=== PATIENT | male | born 1965 | race Caucasian/White ===

== ENCOUNTER 2018-04-25 17:07 | Emergency (ER) | payer MEDICAID, SELFPAY ==
[2018-04-25 17:09] VITALS: BP 151/91; PULSE 103; RESP 18; TEMP 37.2; O2SAT 98; BMI 35.9
--- NOTE | 2018-04-25 17:28 | RAD_ITS ---
STUDY: X-RAY - LEFT FOOT CLINICAL: Male, 52 years old. Swelling. Redness TECHNIQUE: 3 view(s) of the foot. COMPARISON: None. FINDINGS: Markedly abnormal appearance of the midfoot with fractures/dislocations of the second third and fourth tarsal metatarsal joints, fragmentation, sclerosis and debris. Findings may represent chronic traumatic injury, or more likely developing Charcot joint. There is loss of normal plantar arch. There is dorsal soft tissue swelling. There is a moderate spur. Degenerative changes of the first metatarsophalangeal joint. RAD/Foot min 3 Views IMPRESSION: Probable developing Charcot joint of the mid foot. Traumatic injury and/or osteomyelitis is not excluded. Electronically Signed: Clyde Aragon MD at 18:23 EDT , Service support ,
--- NOTE | 2018-04-25 17:54 | ED.VISSUMM ---
- ER Visit Summary Date of Service: 04/25/18 Chief Complaint: [Left foot and ankle swelling] History of Present Illness: The patient is a 52 M [presents to the emergency department with left foot and ankle swelling that started a few days ago. Patient denies any significant trauma. Patient denies chills or sweats. Patient denies any chest pain or shortness of breath. Patient denies recent travel or surgery. Patient states that he was just concerned if he may have possibly done anything not injure his foot pain that he has diabetic neuropathy and does not have much sensation in his feet.] Physical Examination: [HEENT-PERRLA, EOMI. Cranial nerves II through XII grossly intact. TMs clear. Mucous membranes moist. No adenopathy. Cardiovascular-regular rate and rhythm without murmur or ectopy Lungs-clear to auscultation, chest wall stable without crepitus or subcu emphysema Abdomen-normoactive bowel sounds, soft, nontender, no rebound or rigidity, no peritoneal signs. Extremities-intact ?4, normal range of motion, normal pulses, atraumatic]. Left leg-patient has diffuse edema of the foot and leg below the knee. Patient has erythema and warmth. Patient has negative Homans sign. No external evidence of trauma noted. Test Results: [My recommendation is that we order labs and start patient on IV antibiotics however patient is refusing because he states that he does not do needles. I also recommended admission for IV antibiotics which he is refusing and states that is not happening. Patient understands my concern for significant infection. I am unable to obtain an ultrasound of the leg at this time to rule out DVT. My suspicion for DVT however as low as I believe this likely is more consistent with a cellulitis. X-rays of the left foot obtained showed on my interpretation no obvious fractures and we are pending official report from radiology.] Emergency Department Course and Treatment: [Patient given a dose of Keflex in the emergency department.] Treatment Plan: [Patient will be treated with Keflex and I will write him a prescription to have an ultrasound performed of the leg to rule out DVT.] Disposition: [Discharged home in stable condition. Patient advised to return if increasing pain, redness, swelling, chest pain, shortness of breath, or condition should worsen in any way.] Impression: [Cellulitis left leg and foot] This note was generated with Dragon dictation software. It may contain incorrect words, spelling, and punctuation that were not noted in review of the chart prior to signing ED Disposition - Plan for ED Patient: Chief Complaint: Lower Extremity Injury Referrals: Care Physician,No Primary [Primary Care Provider] -
--- NOTE | 2018-04-25 17:58 | ED.DEP ---
ED Disposition - Plan for ED Patient: Chief Complaint: Lower Extremity Injury Instructions: ED Infec Skin Cellulitis Prescriptions: Cephalexin [Keflex] 500 mg PO Q6 #40 cap Referrals: Care Physician,No Primary [Primary Care Provider] - Additional Instructions: come back to hospital tomorrow for an ultrasound of the leg to rule out a blood clot in the leg
[2018-04-25] MEDS: Cephalexin 250 MG Capsule 500 MG PO (18:17)
--- NOTE | 2018-04-25 18:17 | ED.RN ---
pt aware of outpatient order. verbalizes he lives in [facility] and will not be coming back. will discuss with his pcp
[2018-04-25 18:18] VITALS: RESP 18
== END 2018-04-25 18:20 | disposition home or self-care (01) ==
PROVIDERS: Emergency Provider Emergency Medicine
DX: L03.116 Cellulitis of left lower limb (principal); Z53.29 Procedure and treatment not carried out because of patient's decision for other reasons; E11.9 Type 2 diabetes mellitus without complications; Z86.39 Personal history of other endocrine, nutritional and metabolic disease; Z86.79 Personal history of other diseases of the circulatory system; Z79.82 Long term (current) use of aspirin; Z79.84 Long term (current) use of oral hypoglycemic drugs; Z72.0 Tobacco use
CPT/HCPCS: 73630; 99283